=== PATIENT | female | born 1990 | race American Indian/Alaskan Native ===

== ENCOUNTER 2018-11-18 17:31 | Emergency (ER) | payer BC, OTHER ==
[2018-11-18 18:11] VITALS: BMI 25.0
[2018-11-18 18:15] VITALS: BP 104/67; PULSE 97; RESP 18; O2SAT 97
--- NOTE | 2018-11-18 18:36 | ED PDOC ---
Arrival/HPI - General Chief Complaint: Flu-like Symptoms Time Seen by Provider: 11/18/18 18:12 Historian: Patient - History of Present Illness Narrative History of Present Illness (Text): 11/18/18 18:33 28 year old female, with past medical history of sleep apnea, presents to the ED for evaluation of flu-like symptoms since past 3 days. Patient informs fever, generalized myalgias, productive cough w/ yellow sputum and sore throat, unimproved after taking ibuprofen yesterday. Patient informs sick contact with mother, who experienced similar symptoms. Patient denies any other associated somatic complaints. Patient denies any headache, dizziness, chest pain, shortness of breath, dyspnea on exertion, abdominal pain, nausea, vomiting, diarrhea, back pain, neck pain, or any other complaints. Patient informs she is currently on her menstrual cycle. PMD: Dr. Street Time/Duration: < week Symptom Onset: Gradual Symptom Course: Unchanged Activities at Onset: Light Context: Home Past Medical History - Provider Review Nursing Documentation Reviewed: Yes - Infectious Disease Hx of Infectious Diseases: None - Tetanus Immunization Tetanus Immunization: Up to Date - Cardiac Hx Cardiac Disorders: No - Pulmonary Hx Bronchitis: Yes Hx Sleep Apnea: Yes - Psychiatric Hx Depression: No Hx Emotional Abuse: No Hx Physical Abuse: No Hx Substance Use: No - Surgical History Hx Musculoskeletal Surgery: Yes (bilat ACL) - Anesthesia Hx Anesthesia: Yes Hx Anesthesia Reactions: No Hx Malignant Hyperthermia: No - Suicidal Assessment Feels Threatened In Home Enviroment: No Family/Social History - Physician Review Nursing Documentation Reviewed: Yes Family/Social History: Unknown Family HX Smoking Status: Never Smoked Hx Alcohol Use: No Hx Substance Use: No Hx Substance Use Treatment: No Allergies/Home Meds Allergies/Adverse Reactions: Allergies No Known Allergies Allergy (Verified 11/18/18 18:11) Home Medications: Home Meds Medication Instructions Recorded Confirmed No Known Home Med 08/16/14 11/18/18 Review of Systems - Physician Review All systems were reviewed & negative as marked: Yes - Review of Systems Constitutional: Fevers ENT: Sore Throat Respiratory: Cough. absent: SOB Cardiovascular: absent: Chest Pain Gastrointestinal: absent: Abdominal Pain, Diarrhea, Nausea, Vomiting Genitourinary Female: absent: Dysuria, Urine Output Changes Musculoskeletal: Myalgias. absent: Back Pain, Neck Pain Skin: absent: Rash Neurological: absent: Headache, Dizziness Physical Exam Vital Signs Reviewed: Yes Vital Signs Temp Pulse Resp BP Pulse Ox 11/18/18 18:11 100.1 F H 97 H 18 104/67 97 Temperature: Febrile Blood Pressure: Normal Pulse: Tachycardic Respiratory Rate: Normal Appearance: Positive for: Well-Appearing, Non-Toxic, Comfortable Pain Distress: None Mental Status: Positive for: Alert and Oriented X 3 - Systems Exam Head: Present: Atraumatic, Normocephalic Pupils: Present: PERRL Extroacular Muscles: Present: EOMI Conjunctiva: Present: Normal Mouth: Present: Moist Mucous Membranes Pharnyx: Present: ERYTHEMA Respiratory/Chest: Present: Clear to Auscultation, Good Air Exchange. No: Respiratory Distress, Accessory Muscle Use Cardiovascular: Present: Regular Rate and Rhythm, Normal S1, S2. No: Murmurs Abdomen: No: Tenderness, Distention, Peritoneal Signs Upper Extremity: Present: Normal Inspection. No: Cyanosis, Edema Lower Extremity: Present: Normal Inspection. No: Edema Neurological: Present: GCS=15, CN II-XII Intact, Speech Normal Skin: Present: Warm, Dry, Normal Color. No: Rashes Psychiatric: Present: Alert, Oriented x 3, Normal Insight, Normal Concentration Medical Decision Making ED Course and Treatment: 11/18/18 18:33 Impression: 28 year old female presents to the ED for evaluation of flu-like s ymptoms. Plan: -- Chest X-ray -- Tylenol -- Influenza A/B -- Rapid Strep -- Reassess and disposition Prior Visits: Notes and results from previous visits were reviewed. Progress Notes: 11/18/18 19:40 Labs, rapid strep, rapid flu and imaging reviewed. Negative findings. Patient will be advised to get symptomatic care at home. Patient will be discharged with follow-up instructions with PMD. - Scribe Statement The provider has reviewed the documentation as recorded by the Scribelmira Anthony. All medical record entries made by the Scribe were at my direction and personally dictated by me. I have reviewed the chart and agree that the record accurately reflects my personal performance of the history, physical exam, medical decision making, and the department course for this patient. I have also personally directed, reviewed, and agree with the discharge instructions and disposition. Disposition/Present on Arrival - Present on Arrival Any Indicators Present on Arrival: No History of DVT/PE: No History of Uncontrolled Diabetes: No Urinary Catheter: No History of Decub. Ulcer: No History Surgical Site Infection Following: None - Disposition Have Diagnosis and Disposition been Completed?: Yes Diagnosis: Viral syndrome Disposition: HOME/ ROUTINE Disposition Time: 19:43 Patient Plan: Discharge Condition: STABLE Discharge Instructions (ExitCare): Viral Syndrome (DC) Additional Instructions: TIFFANY LUEVANO, thank you for letting us take care of you today. Your provider was Shelli James MD and you were treated for FEVER. The emergency medical care you received today was directed at your acute symptoms. If you were prescribed any medication, please fill it and take as directed. It may take several days for your symptoms to resolve. Return to the Emergency Department if your symptoms worsen, do not improve, or if you have any other problems. Please contact your doctor in 2 days for follow up appointment. Bring any paperwork you were given at discharge with you along with any medications you are taking to your follow up visit. Our treatment cannot replace ongoing medical care by a primary care provider outside of the emergency department. Thank you for allowing the [facility] team to be part of your care today. If you had an X-Ray or CT scan: A Radiologist will review the ED reading if any change in treatment is needed we will contact you. If you had a blood, urine, or wound culture: It will take several days for the results, if any change in treatment is needed we will contact you. If you had an STI test: It will take 48 hours for the results. Please call after 1 week if you have not heard back. Referrals: Rob Street Jr., MD [Primary Care Provider] - Follow up with primary Forms: [employer] ([place]), WORK NOTE
[2018-11-18 19:02] LABS: INFLUENZA A B NEGATIVE FOR FLU A/B (NEGATIVE)
[2018-11-18 20:03] VITALS: TEMP 99.3
--- NOTE | 2018-11-19 09:21 | RAD ---
Date of service: 11/18/2018 HISTORY: fever, cough COMPARISON: No prior. TECHNIQUE: Chest PA and lateral FINDINGS: LUNGS: No active pulmonary disease. PLEURA: No significant pleural effusion identified. No pneumothorax apparent. CARDIOVASCULAR: No aortic atherosclerotic calcification present. Normal cardiac size. No pulmonary vascular congestion. OSSEOUS STRUCTURES: No significant abnormalities. VISUALIZED UPPER ABDOMEN: Normal. OTHER FINDINGS: None. IMPRESSION: No active disease.
== END 2018-11-18 20:02 | disposition home or self-care (01) ==
LOC: ED 17:31
DX: B34.9 Viral infection, unspecified (principal)